=== PATIENT | female | born 1970 | race Caucasian/White ===

== ENCOUNTER 2024-07-13 08:00 | Outpatient (OUT) | payer OTHER, SELFPAY | END 2024-07-13 08:01 | disposition home or self-care (01) | LOC: SLEEP 07-14 08:41 | PROVIDERS: PCP Family Medicine; Visit Provider Family Medicine | DX: G47.33 Obstructive sleep apnea (adult) (pediatric) (principal) | CPT/HCPCS: 95806 ==

== ENCOUNTER 2024-08-03 19:59 | Outpatient (OUT) | payer OTHER, SELFPAY ==
--- OUTSIDE RECORDS SUMMARY | 2024-08-03 20:01 | XMS_ITS | CCD ---
Author Organization [facility] Care Team Providers Care Sports Leadership Instructor Name Role Phone Agustin Nash MD Primary Care Provider [phone] MD Agustin Nash Primary Care Provider [phone] [facility], JADIEL Callejas Attending Prov ider Agustin Nash MD Primary Care Provider [phone] Agustin Nash MD Primary Care Provider [phone] SAAD ., DR VELEZ Admitting Unavailable HOY ., DR VELEZ Primary Care Unavailable HOY ., DR VELEZ Attending Unavailable HOY ., DR VELEZ Admitting Unavailable HOY ., DR VELEZ Primary Care Unavailable HOY ., DR VELEZ Consulting Unavailable HOY ., DR VELEZ Attending Unavailable ZIEBER, DR TERRY Puente Consulting Unavailable MD Agustin Nash Primary Care Provider [phone] [facility], JADIEL Callejas Attending Prov ider MD Agustin Nash Primary Care Provider [phone] [facility], JADIEL Callejas Attending Prov ider LATOYA REESE Attending Unavailable LATOYA REESE Referring Unavailable LATOYA REESE Referring Unavailable MD Agustin Nash Primary Care Provider [phone] JADIEL Fagan Attending Provider Caitlyn Fagan Attending Unavailable Caitlyn Fagan Admitting Unavailable Agustin Nash Primary Care Unavailable Caitlyn Fagan Admitting Unavailable Caitlyn Fagan Attending Unavailable Agustin Nash Primary Care Unavailable Medications Current Medications Medication Drug Class(es) Dates Sig (Normalized) Sig (Original) [place] (No Known Home Meds) (5 sources) Start: 10-11-2020 [place] (No Known Home Meds) Active October 11, 2020 12:00am Completed/Discontinued Medications Medication Drug Class(es) Dates Sig (Normalized) Sig (Original) acetaminophen 325 mg / HYDROcodone bitartrate 5 mg oral tablet (5 sources) Opioid Agonist Start: 01-06-2018 End: 10-11-2020 take 1 tablet by mouth every six hours Hydrocodone-Acetami nophen ([place]) 5-325 mg tablet Discontinued 1 TAB PO Q6H January 06, 2018 October 11, 2020 1:25pm Chondroitin Sulfates / Glucosamine (5 sources) Start: 12-30-2017 End: 10-11-2020 take 1 dose by mouth once daily Glucosamine-Chondro itin Discontinued 1 DOSE PO Daily December 30, 2017 12:00am October 11, 2020 1:25pm 24 hr desvenlafaxine succinate 25 mg extended release oral tablet (10 sources) Serotonin and Norepinephrine Reuptake Inhibitor Start: 01-06-2018 End: 10-11-2020 take 1 tablet by mouth once daily, then take 1 tablet by mouth every twenty-four hours Desvenlafaxine Succinate (Pristiq) 25 mg Tablet Extended Release 24 Hr Discontinued 25 MG PO Daily January 06, 2018 12:00am October 11, 2020 1:25pm Start: 12-30-2017 End: 10-11-2020 take 25 mg by mouth once daily Desvenlafaxine Discontinued 25 MG PO Daily December 30, 2017 12:00am October 11, 2020 1:25pm ibuprofen 600 mg oral tablet (5 sources) Nonsteroidal Anti-inflammatory Drug Start: 01-06-2018 End: 10-11-2020 Ibuprofen Discontinued 600 MG PO Every 6 hours January 06, 2018 12:00am October 11, 2020 1:25pm do not exceed 4 doses in a 24 hour period Supplement For Tissue Repair (5 sources) Start: 12-30-2017 End: 10-11-2020 take 2 capsules by mouth once daily Supplement For Tissue Repair Discontinued 2 CAP PO Daily December 30, 2017 12:00am October 11, 2020 1:25pm Problems Active Problems Problem Classification Problem Date Documented Date Episodic/Chronic Other bone disease and musculoskeletal deformities (7 sources) Posterior calcaneal exostosis; Translations: [Juvenile osteochondrosis of tarsus, right ankle] Onset: 01-29-2022 Chronic Other connective tissue disease (2 sources) Right achilles tendonitis; Translations: [Achilles tendinitis, right leg] Episodic Other connective tissue disease (6 sources) Pain in hallux; Translations: [Pain in left toe(s)] Episodic Other screening for suspected conditions (not mental disorders or infectious disease) (5 sources) Patient encounter status; Translations: [Encounter for screening for malignant neoplasm of colon] 10-12-2020 Episodic Other skin disorders (3 sources) Ingrowing nail; Translations: [Ingrowing nail] Episodic Skin and subcutaneous tissue infections (2 sources) Paronychia of toe of left foot; Translations: [Cellulitis of left toe] Episodic Spondylosis; intervertebral disc disorders; other back problems (6 sources) Other cervical disc degeneration, unspecified cervical region; Translations: [Other cervical disc degeneration at C5-C6 level] Onset: 06-13-2022 Chronic Past or Other Problems Problem Classification Problem Date Documented Da te Episodic/Chronic Other connective tissue disease (7 sources) Calcaneal spur of right foot; Translations: [Calcaneal spur, right foot] Onset: 01-29-2022 Episodic Results Test Name Value Interpretation Reference Range Facility Alanine aminotransferase [En zymatic activity/volume] in Serum or PlasmaOrdered By: Caitlyn Fagan on 02-17-2024 ALT [Catalytic activity/Vol] 22 U/L Normal 7-52 [facility] Comment on above: Performed By: #### L IPID, CMP wRFX A1C, CBCNO, TSH3 #### [facility] [address] [place] [address] #### NICOTINE QUAL #### [facility] , Albumin [Mass/volume] in Ser um or Plasma by Bromocresol green (BCG) dye binding methoOrdered By: Caitlyn Fagan on 02-17-2024 Albumin BCG dye [Mass/Vol] 4.7 g/dL 3.5-5.7 [facility] Alkaline phosphatase [Enzyma tic activity/volume] in Serum or PlasmaOrdered By: Caitlyn Fagan on 02-17-2024 ALP [Catalytic activity/Vol] 60 U/L Normal 34-104 [facility] Comment on above: Performed By: #### L IPID, CMP wRFX A1C, CBCNO, TSH3 #### [facility] [address] [place] [address] [place] #### NICOTINE QUAL #### [facility] , Aspartate aminotransferase [ Enzymatic activity/volume] in Serum or PlasmaOrdered By: Caitlyn Fagan on 02-17-2024 AST [Catalytic activity/Vol] 16 U/L Normal 13-39 [facility] Comment on above: Performed By: #### L IPID, CMP wRFX A1C, CBCNO, TSH3 #### [facility] [address] [place] [address] #### NICOTINE QUAL #### [facility] , Bilirubin.total [Mass/volume ] in Serum or PlasmaOrdered By: Caitlyn Fagan on 02-17-2024 Bilirubin [Mass/Vol] 0.3 mg/dL Normal 0.3-1.0 [facility] Comment on above: Performed By: #### L IPID, CMP wRFX A1C, CBCNO, TSH3 #### [facility] [address] [place] [address] [place] #### NICOTINE QUAL #### [facility] , CMP with reflex to A1Con Albumin [Mass/Vol] 4.7 g/dL Normal 3.5-5.7 [facility] Comment on above: Performed By: #### L IPID, CMP wRFX A1C, CBCNO, TSH3 #### [facility] [address] [place] [address] [place] #### NICOTINE QUAL #### [facility] , GFR/1.73 sq M.predicted MDRD (S/P/Bld) [Vol rate/Area] mL/min/{1.73_m2} Normal [facility] Comment on above: Performed By: #### L IPID, CMP wRFX A1C, CBCNO, TSH3 #### [facility] [address] [place] [address] [place] #### NICOTINE QUAL #### [facility] , Calcium [Mass/volume] in Ser um or PlasmaOrdered By: Caitlyn Fagan on 02-17-2024 Calcium [Mass/Vol] 9.5 mg/dL Normal 8.6-10.3 [facility] Comment on above: Performed By: #### L IPID, CMP wRFX A1C, CBCNO, TSH3 #### [facility] [address] [place] [address] [place] #### NICOTINE QUAL #### [facility] , Carbon dioxide, total [Moles /volume] in Serum or PlasmaOrdered By: Caitlyn Fagan on 02-17-2024 CO2 [Moles/Vol] 30.7 mmol/L Normal 21.0-31.0 [facility] Comment on above: Performed By: #### L IPID, CMP wRFX A1C, CBCNO, TSH3 #### [facility] [address] [place] [address] [place] #### NICOTINE QUAL #### [facility] , Chloride [Moles/volume] in S florentino or PlasmaOrdered By: Caitlyn Fagan on 02-17-2024 Chloride [Moles/Vol] 103 mmol/L Normal 98-107 [facility] Comment on above: Performed By: #### L IPID, CMP wRFX A1C, CBCNO, TSH3 #### [facility] [address] [place] [address] [place] #### NICOTINE QUAL #### [facility] , Cholesterol [Mass/volume] in Serum or PlasmaOrdered By: Caitlyn Fagan on 02-17-2024 Cholesterol [Mass/Vol] 175 mg/dL Normal 140-200 [facility] Comment on above: Chol less than 200 m g/dl low riskChol 201-239 mg/dl borderline riskChol 240 mg/dl and greater high risk Result Comment: Chol less than 200 mg/dl low risk Chol 201-239 mg/dl borderline risk Chol 240 mg/dl and greater high risk Performed By: #### L IPID, CMP wRFX A1C, CBCNO, TSH3 #### [facility] [address] [place] [address] [place] #### NICOTINE QUAL #### [facility] , Cholesterol in LDL Calc [Mas s/Vol]Ordered By: Caitlyn Fagan on 02-17-2024 Cholesterol in LDL [Mass/Vol] 103 mg/dL High 0-100 [facility] Comment on above: LDL ATP III CLASSIFI CATIONLDL less than 100 mg/dL OptimalLDL 100-129 mg/dL Near or above optimalLDL 130-159 mg/dL Borderline highLDL 160-189 mg/dL HighLDL greater than 189 mg/dL Very high Cholesterol in VLDL Calc [Ma ss/Vol]Ordered By: Caitlyn Fagan on 02-17-2024 Cholesterol in VLDL [Mass/Vol] 22 mg/dL [facility] Creatinine [Mass/volume] in Serum or PlasmaOrdered By: Caitlyn Fagan on 02-17-2024 Creatinine [Mass/Vol] 0.79 mg/dL Normal 0.60-1.20 [facility] Comment on above: Performed By: #### L IPID, CMP wRFX A1C, CBCNO, TSH3 #### [facility] [address] [place] [address] [place] #### NICOTINE QUAL #### [facility] , Erythrocyte distribution wid th [Ratio] by Automated countOrdered By: Caitlyn Fagan on 02-17-2024 Erythrocyte distribution width (RBC) [Ratio] 13.3 % Normal 11.9-15.3 [facility] Comment on above: Performed By: #### L IPID, CMP wRFX A1C, CBCNO, TSH3 #### [facility] [address] [place] [address] [place] #### NICOTINE QUAL #### [facility] , Erythrocytes [#/volume] in B lood by Automated countOrdered By: Caitlyn Fagan on 02-17-2024 RBC (Bld) [#/Vol] 4.57 10*6/uL Normal 3.60-5.00 [facility] Comment on above: Performed By: #### L IPID, CMP wRFX A1C, CBCNO, TSH3 #### [address] #### NICOTINE QUAL #### [facility] , Glucose [Mass/volume] in Ser um or PlasmaOrdered By: Caitlyn Fagan on 02-17-2024 Glucose [Mass/Vol] 99 mg/dL Normal 70-100 [facility] Comment on above: Performed By: #### L IPID, CMP wRFX A1C, CBCNO, TSH3 #### [facility] [address] [place] [address] [place] #### NICOTINE QUAL #### [facility] , Hematocrit [Volume Fraction] of Blood by Automated countOrdered By: Caitlyn Fagan on 02-17-2024 Hematocrit (Bld) [Volume fraction] 39.5 % Normal 34.0-46.4 [facility] Comment on above: Performed By: #### L IPID, CMP wRFX A1C, CBCNO, TSH3 #### [facility] [address] [place] [address] [place] #### NICOTINE QUAL #### [facility] , Hemoglobin [Mass/volume] in BloodOrdered By: Caitlyn Fagan on 02-17-2024 Hemoglobin (Bld) [Mass/Vol] 13.5 g/dL Normal 11.8-15.4 [facility] Comment on above: Performed By: #### L IPID, CMP wRFX A1C, CBCNO, TSH3 #### [facility] [address] [place] [address] [place] #### NICOTINE QUAL #### [facility] , Hemogram CBC Without Diffon 02-17-2024 Mean Corpuscular HGB Conc 34.1 g/dL Normal 32.0-35.0 [facility] Comment on above: Performed By: #### L IPID, CMP wRFX A1C, CBCNO, TSH3 #### [place] [address] [place] #### NICOTINE QUAL #### [facility] , WBC (Bld) [#/Vol] 7.5 10*3/uL Normal 3.8-11.6 [facility] Comment on above: Performed By: #### L IPID, CMP wRFX A1C, CBCNO, TSH3 #### [facility] [address] [place] [address] [place] #### NICOTINE QUAL #### [facility] , Leukocytes [#/volume] correc steven for nucleated erythrocytes in Blood by Automated counOrdered By: Caitlyn Fagan on 02-17-2024 WBC corrected for nucl RBC Auto (Bld) [#/Vol] 7.5 10*3/uL 3.8-11.6 [facility] Lipid Panelon 02-17-2024 LDL Cholesterol,Calculated 103 mg/dL High 0-100 [facility] Comment on above: Result Comment: LDL ATP III CLASSIFICATION LDL less than 100 mg/dL Optimal LDL 100-129 mg/dL Near or above optimal LDL 130-159 mg/dL Borderline high LDL 160-189 mg/dL High LDL greater than 189 mg/dL Very high Performed By: #### L IPID, CMP wRFX A1C, CBCNO, TSH3 #### [place] [address] [place] #### NICOTINE QUAL #### [facility] , Triglyceride w/Reflex 112 mg/dL Normal 0-149 [facility] Comment on above: Result Comment: TRIG ATP III CLASSIFICATION TRIG less than 150 mg/dL Normal TRIG 150-199 mg/dL Borderline high TRIG 200-500 mg/dL High TRIG greater than 500 mg/dL Very high Standard traceable to the Center for Disease Conrtrol and Prevention (CDC) test method. Performed By: #### L IPID, CMP wRFX A1C, CBCNO, TSH3 #### [place] [address] [place] #### NICOTINE QUAL #### [facility] , VLDL CHOLESTEROL 22 mg/dL Normal [facility] Comment on above: Performed By: #### L IPID, CMP wRFX A1C, CBCNO, TSH3 #### [facility] [address] [place] [address] [place] #### NICOTINE QUAL #### [facility] , MCH [Entitic mass] by Automa steven countOrdered By: Caitlyn Fagan on 02-17-2024 MCH (RBC) [Entitic mass] 29.5 pg Normal 24.7-34.3 [facility] Comment on above: Performed By: #### L IPID, CMP wRFX A1C, CBCNO, TSH3 #### [facility] [address] [place] [address] #### NICOTINE QUAL #### [facility] , MCHC Auto (RBC) [Mass/Vol]Or dered By: Caitlyn Fagan on 02-17-2024 MCHC (RBC) [Mass/Vol] 34.1 g/dL 32.0-35.0 [facility] MCV [Entitic volume] by Auto mated countOrdered By: Caitlyn Fagan on 02-17-2024 MCV (RBC) [Entitic vol] 86.5 fL Normal 80-100 [facility] Comment on above: Performed By: #### L IPID, CMP wRFX A1C, CBCNO, TSH3 #### [place] [address] [place] #### NICOTINE QUAL #### [facility] , Nicotine Metabolite, QualOrd ered By: Caitlyn Fagan on 02-17-2024 Nicotine Metabolite Negative Normal Cutoff=25 [facility] Comment on above: Performed at: [facility] [address] [id number] Director: Mike Alejandre MD, Phone: [phone] Result Comment: Perf ormed at: BN - [facility] [address] [id number] Online Community Manager: Mike Alejandre MD, Phone: [phone] PERFORMED BY: [place] [address] PATHOLOGIST TOW MOTOR OPERATOR TORITO CASTRO M.D. Performed By: #### L IPID, CMP wRFX A1C, CBCNO, TSH3 #### [address] #### NICOTINE QUAL #### [facility] , No Panel InformationOrdered By: Caitlyn Fagan on 02-17-2024 Estimated GFR (CKD-EPI) > 60.0 mL/Min [facility] Creatinine Clearance (Chem N/A [facility] Platelet mean volume [Entiti c volume] in Blood by Automated countOrdered By: Caitlyn Fagan on 02-17-2024 Platelet mean volume (Bld) [Entitic vol] 8.3 fL Normal 6.3-10.7 [facility] Comment on above: Result Comment: PERF ORMED BY: [place] [address] PATHOLOGIST TOW MOTOR OPERATOR TORITO CASTRO M.D. Performed By: #### L IPID, CMP wRFX A1C, CBCNO, TSH3 #### [address] #### NICOTINE QUAL #### [facility] , Platelets [#/volume] in Bloo d by Automated countOrdered By: Caitlyn Fagan on 02-17-2024 Platelets (Bld) [#/Vol] 248 10*3/uL Normal 150-450 [facility] Comment on above: Performed By: #### L IPID, CMP wRFX A1C, CBCNO, TSH3 #### [address] #### NICOTINE QUAL #### [facility] , Potassium [Moles/volume] in Serum or PlasmaOrdered By: Caitlyn Fagan on 02-17-2024 Potassium [Moles/Vol] 4.8 mmol/L Normal 3.5-5.1 [facility] Comment on above: Performed By: #### L IPID, CMP wRFX A1C, CBCNO, TSH3 #### [facility] [address] [place] [address] [place] #### NICOTINE QUAL #### [facility] , Protein [Mass/volume] in Ser um or PlasmaOrdered By: Caitlyn Fagan on 02-17-2024 Protein [Mass/Vol] 6.9 g/dL Normal 6.4-8.9 [facility] Comment on above: Performed By: #### L IPID, CMP wRFX A1C, CBCNO, TSH3 #### [facility] [address] [place] [address] #### NICOTINE QUAL #### [facility] , Serum globulin measurement b y calculation (mass/volume)Ordered By: Caitlyn Fagan on 02-17-2024 Globulin (S) [Mass/Vol] 2.2 g/dL Normal [facility] Comment on above: Performed By: #### L IPID, CMP wRFX A1C, CBCNO, TSH3 #### [facility] [address] [place] [address] [place] #### NICOTINE QUAL #### [facility] , Serum or plasma albumin/glob ulin mass ratioOrdered By: Catilyn Fagan on 02-17-2024 Albumin/Globulin [Mass ratio] 2.1 {ratio} Normal [facility] Comment on above: Performed By: #### L IPID, CMP wRFX A1C, CBCNO, TSH3 #### [facility] [address] [place] [address] [place] #### NICOTINE QUAL #### [facility] , Serum or plasma anion gap de terminationOrdered By: Caitlyn Fagan on 02-17-2024 Anion gap [Moles/Vol] 9.1 mmol/L Normal 6.0-15.0 [facility] Comment on above: Performed By: #### L IPID, CMP wRFX A1C, CBCNO, TSH3 #### [facility] [address] [place] [address] [place] #### NICOTINE QUAL #### [facility] , Serum or plasma high density lipoprotein (HDL) cholesterol measurementOrdered By: Caitlyn Fagan on 02-17-2024 Cholesterol in HDL [Mass/Vol] 50 mg/dL Normal 23-92 [facility] Comment on above: HDL CHOL ATP-III CLA SSIFICATION Cardiovascular RiskHDL > or equal to 60 mg/dL LOWHDL < 40 mg/dL HIGH Result Comment: HDL CHOL ATP-III CLASSIFICATION Cardiovascular Risk HDL > or equal to 60 mg/dL LOW HDL < 40 mg/dL HIGH Performed By: #### L IPID, CMP wRFX A1C, CBCNO, TSH3 #### [facility] [address] [place] [address] #### NICOTINE QUAL #### [facility] , Serum or plasma total choles terol/high density lipoprotein (HDL) cholesterol mass ratOrdered By: Caitlyn Fagan on 02-17-2024 Cholesterol.total/Choles terol in HDL [Mass ratio] 3.5 {ratio} Normal <5.0 [facility] Comment on above: Performed By: #### L IPID, CMP wRFX A1C, CBCNO, TSH3 #### [facility] [address] [place] [address] #### NICOTINE QUAL #### [facility] , Sodium [Moles/volume] in Ser um or PlasmaOrdered By: Caitlyn Fagan on 02-17-2024 Sodium [Moles/Vol] 138 mmol/L Normal 136-145 [facility] Comment on above: Performed By: #### L IPID, CMP wRFX A1C, CBCNO, TSH3 #### [facility] [address] [place] [address] [place] #### NICOTINE QUAL #### [facility] , Thyrotropin [Units/volume] i n Serum or PlasmaOrdered By: Caitlyn Fagan on 02-17-2024 TSH Qn 3.15 m[IU]/L Normal 0.45-5.33 [facility] Comment on above: Result Comment: PERF ORMED BY: [place] [address] PATHOLOGIST TOW MOTOR OPERATOR TORITO CASTRO M.D. Performed By: #### L IPID, CMP wRFX A1C, CBCNO, TSH3 #### [facility] [address] #### NICOTINE QUAL #### [facility] , Triglyceride [Mass/volume] i n Serum or PlasmaOrdered By: Caitlyn Fagan on 02-17-2024 Triglyceride [Mass/Vol] 112 mg/dL 0-149 [facility] Comment on above: TRIG ATP III CLASSIF ICATIONTRIG less than 150 mg/dL NormalTRIG 150-199 mg/dL Borderline highTRIG 200-500 mg/dL High TRIG greater than 500 mg/dL Very highStandard traceable to the Center for Disease Conrtrol and Prevention (CDC) test method. Urea nitrogen [Mass/volume] in Serum or PlasmaOrdered By: Caitlyn Fagan on 02-17-2024 Urea nitrogen [Mass/Vol] 17 mg/dL Normal 7-25 [facility] Comment on above: Performed By: #### L IPID, CMP wRFX A1C, CBCNO, TSH3 #### [facility] [address] #### NICOTINE QUAL #### [facility] , BI MAMMOGRAM SCREENING TOMOS YNTHESIS BILATERALon 11-27-2023 BI MAMMOGRAM SCREENING TOMOSYNTHESIS BILATERAL This is a summary report. The complete report is available in the patient's medical record. If you cannot access the medical record, please contact the sending organization for a detailed fax or copy. EXAMINATION: BI MAMMOGRAM SCREENING TOMOSYNTHESIS BILATERAL CLINICAL HISTORY:screening COMPARISON: October 14, 2022 . RESULT: Density: Scattered fibroglandular density [2] There is no suspicious mass, asymmetry, architectural distortion, or calcification. Typically benign calcifications. Overall appearance stable. IMPRESSION: BIRADS 1 - Negative Follow-up: Routine Screening Mamm Board Certified Radiologists. Accredited by the ACR and FDA. MAMMOGRAPHY IS VERY IMPORTANT TO YOUR HEALTH. THE [employer] GUIDELINES RECOMMEND THAT WOMEN 40 YEARS OF AGE AND OLDER SHOULD HAVE A MAMMOGRAM EVERY YEAR. A REMINDER LETTER WILL BE SENT AT THE APPROPRIATE TIME. THIS FACILITY UTILIZES A REMINDER SYSTEM TO ENSURE ALL PATIENTS RECEIVE REMINDER NOTIFICATIONS AT THE APPROPRIATE TIME BASED ON THE RECOMMENDATIONS OF THIS EXAM. THIS INCLUDES REMINDERS FOR ROUTINE SCREENING MAMMOGRAMS, DIAGNOSTIC MAMMOGRAMS IN WHICH THE PATIENT IS ASKED TO RETURN FOR ADDITIONAL VIEWS, OR OTHER BREAST IMAGING INTERVENTIONS WHEN APPROPRIATE. THE PATIENT WILL BE PLACED IN THE APPROPRIATE REMINDER SYSTEM INCLUDING A REMINDER AT THE APPROPRIATE TIME FOR ANY PENDING ADDITIONAL VIEWS. TRANSCRIBED BY: ELECTRONICALLY SIGNED BY: John Arellano MD Normal Not Available Comment on above: Order Comment: Us an d spot compression prn Alanine aminotransferase [En zymatic activity/volume] in Serum or PlasmaOrdered By: Caitlyn Fagan on 01-21-2023 ALT [Catalytic activity/Vol] 22 U/L 7-52 [facility] Albumin [Mass/volume] in Ser um or Plasma by Bromocresol green (BCG) dye binding methoOrdered By: Caitlyn Fagan on 01-21-2023 Albumin BCG dye [Mass/Vol] 4.7 g/dL 3.5-5.7 [facility] Alkaline phosphatase [Enzyma tic activity/volume] in Serum or PlasmaOrdered By: Caitlyn Fagan on 01-21-2023 ALP [Catalytic activity/Vol] 66 U/L 34-104 [facility] Aspartate aminotransferase [ Enzymatic activity/volume] in Serum or PlasmaOrdered By: Caitlyn Fagan on 01-21-2023 AST [Catalytic activity/Vol] 17 U/L 13-39 [facility] Bilirubin.total [Mass/volume ] in Serum or PlasmaOrdered By: Caitlyn Fagan on 01-21-2023 Bilirubin [Mass/Vol] 0.5 mg/dL 0.3-1.0 [facility] Calcium [Mass/volume] in Ser um or PlasmaOrdered By: Caitlyn Fagan on 01-21-2023 Calcium [Mass/Vol] 9.5 mg/dL 8.6-10.3 [facility] Carbon dioxide, total [Moles /volume] in Serum or PlasmaOrdered By: Caitlyn Fagan on 01-21-2023 CO2 [Moles/Vol] 32.8 mmol/L 21.0-31.0 [facility] Chloride [Moles/volume] in S florentino or PlasmaOrdered By: Caitlyn Fagan on 01-21-2023 Chloride [Moles/Vol] 104 mmol/L 98-107 [facility] Cholesterol [Mass/volume] in Serum or PlasmaOrdered By: Caitlyn Fagan on 01-21-2023 Cholesterol [Mass/Vol] 191 mg/dL 140-200 [facility] Comment on above: Chol less than 200 m g/dl low riskChol 201-239 mg/dl borderline riskChol 240 mg/dl and greater high risk Cholesterol in LDL Calc [Mas s/Vol]Ordered By: Caitlyn Fagan on 01-21-2023 Cholesterol in LDL [Mass/Vol] 112 mg/dL 0-100 [facility] Comment on above: LDL ATP III CLASSIFI CATIONLDL less than 100 mg/dL OptimalLDL 100-129 mg/dL Near or above optimalLDL 130-159 mg/dL Borderline highLDL 160-189 mg/dL HighLDL greater than 189 mg/dL Very high Cholesterol in VLDL Calc [Ma ss/Vol]Ordered By: Caitlyn Fagan on 01-21-2023 Cholesterol in VLDL [Mass/Vol] 31 mg/dL [facility] Creatinine [Mass/volume] in Serum or PlasmaOrdered By: Caitlyn Fagan on 01-21-2023 Creatinine [Mass/Vol] 0.78 mg/dL 0.60-1.20 [facility] Erythrocyte distribution wid th Auto (RBC) [Ratio]Ordered By: Caitlyn Fagan on 01-21-2023 Erythrocyte distribution width (RBC) [Ratio] 12.9 % 11.9-15.3 [facility] [facility] Globulin Calc (S) [Mass/Vol] Ordered By: Caitlyn Fagan on 01-21-2023 Globulin (S) [Mass/Vol] 2.2 g/dL [facility] Glucose [Mass/volume] in Ser um or PlasmaOrdered By: Caitlyn Fagan on 01-21-2023 Glucose [Mass/Vol] 115 mg/dL 70-100 [facility] Comment on above: ADA recommended refe rence range Hematocrit Auto (Bld) [Volum e fraction]Ordered By: Caitlyn Fagan on 01-21-2023 Hematocrit (Bld) [Volume fraction] 40.3 % 34.0-46.4 [facility] Hemoglobin [Mass/volume] in BloodOrdered By: Caitlyn Fagan on 01-21-2023 Hemoglobin (Bld) [Mass/Vol] 13.5 g/dL 11.8-15.4 [facility] Leukocytes [#/volume] correc steven for nucleated erythrocytes in Blood by Automated counOrdered By: Caitlyn Fagan on 01-21-2023 WBC corrected for nucl RBC Auto (Bld) [#/Vol] 8.5 10*3/uL 3.8-11.6 [facility] MCH Auto (RBC) [Entitic mass ]Ordered By: Caitlyn Fagan on 01-21-2023 MCH (RBC) [Entitic mass] 29.1 pg 24.7-34.3 [facility] MCHC Auto (RBC) [Mass/Vol]Or dered By: Caitlyn Fagan on 01-21-2023 MCHC (RBC) [Mass/Vol] 33.5 g/dL 32.0-35.0 [facility] MCV Auto (RBC) [Entitic vol] Ordered By: Caitlyn Fagan on 01-21-2023 MCV (RBC) [Entitic vol] 87.0 fL 80-100 [facility] No Panel InformationOrdered By: Caitlyn Fagan on 01-21-2023 Estimated GFR (CKD-EPI) > 60.0 mL/Min [facility] Pharmacy Creatinine Clearance (Chem N/A [facility] Platelet mean volume Auto (B ld) [Entitic vol]Ordered By: Caitlyn Fagan on 01-21-2023 Platelet mean volume (Bld) [Entitic vol] 8.7 fL 6.3-10.7 [facility] Platelets Auto (Bld) [#/Vol] Ordered By: Caitlyn Fagan on 01-21-2023 Platelets (Bld) [#/Vol] 249 10*3/uL 150-450 [facility] Potassium [Moles/volume] in Serum or PlasmaOrdered By: Caitlyn Fagan on 01-21-2023 Potassium [Moles/Vol] 4.8 mmol/L 3.5-5.1 [facility] Protein [Mass/volume] in Ser um or PlasmaOrdered By: Caitlyn Fagan on 01-21-2023 Protein [Mass/Vol] 6.9 g/dL 6.4-8.9 [facility] RBC Auto (Bld) [#/Vol]Ordere d By: Caitlyn Fagan on 01-21-2023 RBC (Bld) [#/Vol] 4.63 10*6/uL 3.60-5.00 [facility] Serum or plasma albumin/glob ulin mass ratioOrdered By: Caitlyn Fagan on 01-21-2023 Albumin/Globulin [Mass ratio] 2.1 {ratio} [facility] Serum or plasma anion gap de terminationOrdered By: Caitlyn Fagan on 01-21-2023 Anion gap [Moles/Vol] 10.0 mmol/L 6.0-15.0 [facility] Serum or plasma high density lipoprotein (HDL) cholesterol measurementOrdered By: Caitlyn Fagan on 01-21-2023 Cholesterol in HDL [Mass/Vol] 48 mg/dL 23-92 [facility] Comment on above: HDL CHOL ATP-III CLA SSIFICATION Cardiovascular RiskHDL > or equal to 60 mg/dL LOWHDL < 40 mg/dL HIGH Serum or plasma total choles terol/high density lipoprotein (HDL) cholesterol mass ratOrdered By: Caitlyn Fagan on 01-21-2023 Cholesterol.total/Choles terol in HDL [Mass ratio] 4.0 {ratio} <5.0 [facility] Sodium [Moles/volume] in Ser um or PlasmaOrdered By: Caitlyn Fagan on 01-21-2023 Sodium [Moles/Vol] 142 mmol/L 136-145 [facility] Thyrotropin [Units/volume] i n Serum or PlasmaOrdered By: Caitlyn Fagan on 01-21-2023 TSH Qn 3.70 m[IU]/L 0.45-5.33 [facility] Triglyceride [Mass/volume] i n Serum or PlasmaOrdered By: Caitlyn Fagan on 01-21-2023 Triglyceride [Mass/Vol] 155 mg/dL 0-149 [facility] Comment on above: TRIG ATP III CLASSIF ICATIONTRIG less than 150 mg/dL NormalTRIG 150-199 mg/dL Borderline highTRIG 200-500 mg/dL High TRIG greater than 500 mg/dL Very highStandard traceable to the Center for Disease Conrtrol and Prevention (CDC) test method. Urea nitrogen [Mass/volume] in Serum or PlasmaOrdered By: Caitlyn Fagan on 01-21-2023 Urea nitrogen [Mass/Vol] 12 mg/dL 7- [facility] SCREENING MAMMOGRAM W/EMILI, BILATERAL*on 10-14-2022 SCREENING MAMMOGRAM W/EMILI, BILATERAL* CLINICAL HISTORY: Screening Mammogram COMPARISON: Priors dating back to 2017. TECHNIQUE: 2D and 3D mammogram imaging of both breasts was performed. RESULT: DENSITY: Heterogeneously dense, which may obscure small masses. There is no suspicious mass, asymmetry, architectural distortion, or calcification. No significant change since the prior mammograms. IMPRESSION: BIRADS 1 : NEGATIVE, NORMAL INTERVAL FOLLOW UP FOLLOW UP: 12 months DENSITY: Heterogeneously dense MAMMOGRAPHY IS VERY IMPORTANT TO YOUR HEALTH. THE CURRENT [employer] GUIDELINES RECOMMENDS ANNUAL MAMMOGRAPHY BEGINNING AT AGE 38 THIS FACILITY USES A REMINDER SYSTEM TO ENSURE ALL PATIENTS RECEIVE REMINDER NOTIFICATIONS AT THE APPROPRIATE TIME BASED ON THE RECOMMENDATIONS OF THIS EXAM. Board Certified Radiologist. Accredited by the ACR and FDA. Report reported and signed by Clay Gregory on 10/14/2022 1113 Normal [facility] Specialist XR CSPINE MIN 4 VIEWSon 06-02 XR CSPINE MIN 4 VIEWS EXAMINATION: XR CSPINE MIN 4 VIEWS HISTORY: Degeneration of cervical intervertebral disc ; chronic neck pain, right arm pain and numbness COMPARISON: No relevant comparison available. FINDINGS: BONES: Reversal of normal lordotic curvature of cervical spine; positioning versus muscle spasm.. No fracture, spondylolisthesis, bone lesion. No facet joint disruption or significant arthropathy. DISC SPACES: Mild narrowing C4-C5, C5-C6. PARASPINOUS: Negative. No paraspinous abnormality is seen. OTHER: Negative. IMPRESSION: 1. Mild degenerative disc disease C4-C5, C5-C6. Consider MRI for further evaluation. Electronically authenticated by: TERRY HERNANDEZ Date: 2022-06-13 08:33 Normal [facility] Albumin [Mass/volume] in Ser um or PlasmaOrdered By: Caitlyn Fagan on 02-08-2022 Albumin [Mass/Vol] 4.2 g/dL 3.2-5.5 [facility] Blood hemoglobin measurement (mass/volume)Ordered By: Caitlyn Fagan on 02-08-2022 Hemoglobin (Bld) [Mass/Vol] 13.8 g/dL 11.8-15.4 [facility] Cholesterol [Mass/volume] in Serum or PlasmaOrdered By: Caitlyn Fagan on 02-08-2022 Cholesterol [Mass/Vol] 182 mg/dL 140-200 [facility] Comment on above: Chol less than 200 m g/dl low risk Chol 201-239 mg/dl borderline risk Chol 240 mg/dl and greater high risk Cholesterol in LDL Calc [Mas s/Vol]Ordered By: Caitlyn Fagan on 02-08-2022 Cholesterol in LDL [Mass/Vol] 101 mg/dL 0-100 [facility] Comment on above: LDL ATP III CLASSIFI CATION LDL less than 100 mg/dL Optimal LDL 100-129 mg/dL Near or above optimal LDL 130-159 mg/dL Borderline high LDL 160-189 mg/dL High LDL greater than 189 mg/dL Very high Cholesterol in VLDL Calc [Ma ss/Vol]Ordered By: Caitlyn Fagan on 02-08-2022 Cholesterol in VLDL [Mass/Vol] 34 mg/dL [facility] Creatinine and Glomerular fi ltration rate.predicted panel (S/P/Bld)Ordered By: Caitlyn Fagan on 02-08-2022 Creatinine [Mass/Vol] 0.87 mg/dL 0.44-1.03 [facility] Erythrocyte distribution wid th Auto (RBC) [Ratio]Ordered By: Caitlyn Fagan on 02-08-2022 Erythrocyte distribution width (RBC) [Ratio] 12.8 % 11.9-15.3 [facility] Estimated glomerular filtrat ion rate (GFR) non- AmericanOrdered By: Caitlyn Fagan on 02-08-2022 GFR/1.73 sq M.predicted among non-blacks MDRD (S/P/Bld) [Vol rate/Area] > 60 mL/Min [facility] Globulin Calc (S) [Mass/Vol] Ordered By: Caitlyn Fagan on 02-08-2022 Globulin (S) [Mass/Vol] 2.2 g/dL F [facility] Hematocrit Auto (Bld) [Volum e fraction]Ordered By: Caitlyn Fagan on 02-08-2022 Hematocrit (Bld) [Volume fraction] 41.6 % 34.0-46.4 [facility] Laboratory - Chemistry and C hemistry - challengeOrdered By: Caitlyn Fagan on 02-08-2022 Glucose [Mass/Vol] 78 mg/dL 70-100 [facility] MCH Auto (RBC) [Entitic mass ]Ordered By: Caitlyn Fagan on 02-08-2022 MCH (RBC) [Entitic mass] 29.1 pg 24.7-34.3 [facility] MCHC Auto (RBC) [Mass/Vol]Or dered By: Caitlyn Fagan on 02-08-2022 MCHC (RBC) [Mass/Vol] 33.1 g/dL 32.0-35.0 [facility] MCV Auto (RBC) [Entitic vol] Ordered By: Caitlyn Fagan on 02-08-2022 MCV (RBC) [Entitic vol] 87.9 fL 80-100 F [facility] No Panel InformationOrdered By: Caitlyn Fagan on 02-08-2022 Estimated GFR () > 60 mL/Min [facility] Comment on above: GFR estimated refere nce range: According to KDOQI guidelines, <60 ml/min/1.73m2 is sufficient to diagnose a patient with chronic kidney disease. Pharmacy Creatinine Clearance (Chem N/A [facility] Platelet mean volume Auto (B ld) [Entitic vol]Ordered By: Caitlyn Fagan on 02-08-2022 Platelet mean volume (Bld) [Entitic vol] 8.8 fL 6.3-10.7 [facility] Platelets Auto (Bld) [#/Vol] Ordered By: Caitlyn Fagan on 02-08-2022 Platelets (Bld) [#/Vol] 265 10*3/uL 150-450 [facility] Protein [Mass/volume] in Ser um or PlasmaOrdered By: Caitlyn Fagan on 02-08-2022 Protein [Mass/Vol] 6.4 g/dL 6.1-7.9 [facility] RBC Auto (Bld) [#/Vol]Ordere d By: Caitlyn Fagan on 02-08-2022 RBC (Bld) [#/Vol] 4.73 10*6/uL 3.60-5.00 [facility] Serum or plasma alanine mayer otransferase measurement without P-5'-P (enzymatic activiOrdered By: Caitlyn Fagan on 02-08-2022 ALT No additional P-5'-P [Catalytic activity/Vol] 29 U/L 10-60 [facility] Serum or plasma albumin/glob ulin mass ratioOrdered By: Caitlyn Fagan on 02-08-2022 Albumin/Globulin [Mass ratio] 1.9 {ratio} [facility] Serum or plasma alkaline collin sphatase measurement (enzymatic activity/volume)Ordered By: Caitlyn Fagan on 02-08-2022 ALP [Catalytic activity/Vol] 62 U/L 32-92 [facility] Serum or plasma anion gap de terminationOrdered By: Caitlyn Fagan on 02-08-2022 Anion gap [Moles/Vol] 12.7 mmol/L 6.0-15.0 [facility] Serum or plasma aspartate am inotransferase measurement (enzymatic activity/volume)Ordered By: Caitlyn Fagan on 02-08-2022 AST [Catalytic activity/Vol] 23 U/L 10-42 [facility] Serum or plasma calcium cecliy urement (mass/volume)Ordered By: Caitlyn Fagan on 02-08-2022 Calcium [Mass/Vol] 9.4 mg/dL 8.2-10.2 [facility] Serum or plasma chloride concepcion surement (moles/volume)Ordered By: Caitlyn Fagan on 02-08-2022 Chloride [Moles/Vol] 101 mmol/L 95-114 [facility] Serum or plasma high density lipoprotein (HDL) cholesterol measurementOrdered By: Caitlyn Fagan on 02-08-2022 Cholesterol in HDL [Mass/Vol] 46 mg/dL 35-85 [facility] Comment on above: HDL CHOL ATP-III CLA SSIFICATION Cardiovascular Risk HDL > or equal to 60 mg/dL LOW HDL < 40 mg/dL HIGH Serum or plasma potassium me asurement (moles/volume)Ordered By: Caitlyn Fagan on 02-08-2022 Potassium [Moles/Vol] 4.0 mmol/L 3.5-5.1 [facility] Serum or plasma sodium measu rement (moles/volume)Ordered By: Caitlyn Fagan on 02-08-2022 Sodium [Moles/Vol] 139 mmol/L 136-146 [facility] Serum or plasma total biliru bin measurement (mass/volume)Ordered By: Caitlyn Fagan on 02-08-2022 Bilirubin [Mass/Vol] 0.4 mg/dL 0.3-1.2 [facility] Serum or plasma total carbon dioxide measurement (moles/volume)Ordered By: Caitlyn Fagan on 02-08-2022 CO2 [Moles/Vol] 29.3 mmol/L 22.0-30.0 [facility] Serum or plasma total choles terol/high density lipoprotein (HDL) cholesterol mass ratOrdered By: Caitlyn Fagan on 02-08-2022 Cholesterol.total/Choles terol in HDL [Mass ratio] 4.0 {ratio} <5.0 [facility] Serum or plasma urea nitroge n measurement (mass/volume)Ordered By: Caitlyn Fagan on 02-08-2022 Urea nitrogen [Mass/Vol] 11 mg/dL 9-23 [facility] TSH DL <= 0.005 mIU/L QnOrde red By: Caitlyn Fagan on 02-08-2022 TSH Qn 2.01 m[IU]/L 0.45-5.33 [facility] Triglyceride [Mass/volume] i n Serum or PlasmaOrdered By: Caitlyn Fagan on 02-08-2022 Triglyceride [Mass/Vol] 174 mg/dL 35-149 F [facility] Comment on above: TRIG ATP III CLASSIF ICATION TRIG less than 150 mg/dL Normal TRIG 150-199 mg/dL Borderline high TRIG 200-500 mg/dL High TRIG greater than 500 mg/dL Very high Standard traceable to the Center for Disease Conrtrol and Prevention (CDC) test method. WBC Auto (Bld) [#/Vol]Ordere d By: Caitlyn Fagan on 02-08-2022 WBC (Bld) [#/Vol] 7.3 10*3/uL 3.8-11.6 [facility] Vital Signs Date Time Vital Sign Value Performing Clinician Faci lity 09-03-2022 11:42-0400 Body height 165.1 cm Ness na Kiara DPM Work Phone: [facility] 09-03-2022 11:42-0400 Body weight 99.79 kg Ness na Kiara DPM Work Phone: [facility] 08-06-2022 10:45-0500 Body height 165.1 cm Ness na Kiara DPM Work Phone: [facility] 08-06-2022 10:45-0500 Body weight 99.79 kg Ness na Kiara DPM Work Phone: [facility] 05-14-2022 10:17-0500 Body height 165.1 cm Ness na Kiara DPM Work Phone: [facility] 05-14-2022 10:17-0500 Body weight 99.79 kg Ness na Kiara DPM Work Phone: [facility] 02-19-2022 10:20-0400 Body height 165.1 cm Ness na Kiara DPM Work Phone: [facility] 02-19-2022 10:20-0400 Body weight 99.79 kg Ness na Kiara DPM Work Phone: [facility] 01-29-2022 09:57-0400 Body height 165.1 cm Ness na Kiara DPM Work Phone: [facility] 01-29-2022 09:57-0400 Body weight 99.79 kg Ness Craig DPM Work Phone: [facility] Encounters Encounter Date Encounter Type Care Provider Facility Start: 02-24-2024 End: 02-24-2024 ambulatory Caitlyn Fagan Facility:[facility] Start: 02-24-2024 End: 02-24-2024 Patient encounter procedure MD Agustin Nash Work Phone: [facility] [address] Work Phone: Start: 02-17-2024 End: 02-17-2024 ambulatory MD Agustin Nash Work Phone: [facility] Work Phone: Start: 02-17-2024 Encounter for genera l adult medical examination without abnormal findings Caitlyn Fagan [facility] Start: 02-17-2024 End: 02-17-2024 Patient encounter procedure MD Agustin Nash Work Phone: [facility] Work Phone: Start: 11-27-2023 End: 11-27-2023 ambulatory LATOYA A VISCI Not Available Start: 11-26-2023 End: 11-26-2023 ambulatory LATOYA A VISCI Not Available Start: 01-21-2023 End: 01-21-2023 ambulatory MD Agustin Nash Work Phone: [facility] Work Phone: Start: 01-21-2023 End: 01-21-2023 Departed Referred MD Agustin Nash Work Phone: [facility] Work Phone: Start: 01-20-2023 End: 01-20-2023 ambulatory MD Agustin Nash Work Phone: [facility] Work Phone: Start: 01-20-2023 End: 01-20-2023 Departed Referred MD Agustin Nash Work Phone: [email or web address] Work Phone: Start: 09-03-2022 End: 09-03-2022 Patient encounter procedure Lulú Craig DPM Work Phone: [facility] Comment on above: Onychocryptosis (Rashida thor Dx); Great toe pain, right; Great toe pain, left Start: 08-06-2022 End: 08-06-2022 Patient encounter procedure Lulú Craig DPM Work Phone: [facility] Comment on above: Onychocryptosis (Rashida thor Dx); Great toe pain, left Start: 06-26-2022 End: 08-17-[address] AGUSTIN NASH . Facility: Start: 06-12-2022 End: 06-13-[address] AGUSTIN NASH . Facility: Start: 05-14-2022 End: 05-14-2022 Patient encounter procedure Lulú Craig DPM Work Phone: [facility] Comment on above: Onychocryptosis (Rashida thor Dx); Great toe pain, left; Tendonitis, Achilles, right; Epi's deformity of both heels; Heel spur, right Start: 02-19-2022 End: 02-19-2022 Patient encounter procedure Lulú Craig DPM Work Phone: [facility] Comment on above: Paronychia of great toe of left foot (Primary Dx); Great toe pain, left Start: 02-08-2022 End: 02-08-2022 Departed Referred MD Agustin Nash Work Phone: [email or web address] Start: 01-29-2022 End: 01-29-2022 Patient encounter procedure Lulú Craig DPM Work Phone: [facility] Comment on above: Tendonitis, Achilles , right (Primary Dx); Epi's deformity of both heels; Heel spur, right; Paronychia of great toe of left foot; Great toe pain, left Plan of Treatment Date Care Activity Detail Author Start: 01-21-2023 [facility] Start: 06-02-2022 DEPRESSION ASSESSMENT DEPRESSION ASSESSMENT [facility] Start: 01-31-2022 Influenza vaccination INFLUENZA (#1) [facility] Start: 06-02-2021 DEPRESSION ASSESSMENT DEPRESSION ASSESSMENT [facility] Start: 2018 SHINGRIX VACCINE (1 of 2) SHINGRIX VACCINE (1 of 2) [facility] Start: 2013 COLOGUARD (FIT-DNA) COLOGUARD (FIT-DNA) [facility] Start: 2013 Colonoscopy COLONOSCOPY [facility] Start: 2013 COLORECTAL CANCER SCREENING COLORECTAL CANCER SCREENING [facility] Start: [address] COLONOGRAPHY [facility] Start: 2013 DIABETES SCREEN DIABETES SCREEN [facility] Start: 2013 FECAL OCCULT BLOOD FECAL OCCULT BLOOD [facility] Start: 2013 LIPID SCREEN LIPID SCREEN [facility] Start: 2013 SIGMOIDOSCOPY SIGMOIDOSCOPY [facility] Start: 2008 Mammography MAMMOGRAM [facility] Start: 1998 HPV TESTING HPV TESTING [facility] Start: 1989 PAP TESTING PAP TESTING [facility] Start: 12-12-1987 Urine microalbumin profile DTAP,TDAP,TD (1 - Tdap) [facility] Start: 1986 HEPATITIS C SCREENING HEPATITIS C SCREENING [facility] Start: 1986 HIV SCREENING HIV SCREENING [facility] Start: 1980 Adult depression screening assessment DEPRESSION SCREENING [facility] Start: 06-13-1969 COVID-19 VACCINE (#1) COVID-19 VACCINE (#1) [facility] Start: 1968 HEPATITIS B (1 of 3 - 3-dose series) HEPATITIS B (1 of 3 - 3-dose series) [facility] Immunizations Immunization Date Immunization Notes Care Provider Elizabeth campbell 02-08-2022 influenza, injectabl e, quadrivalent, preservative free MD Agustin Nash Work Phone: [facility] Payers Date Payer Category Payer Self-pay [id number] 2018 Unknown [id number] 1968 Unknown [id number] 1968 Unknown [id number] [id number] 1968 Unknown [id number] [id number] 1968 Unknown [id number] 1959 Unknown [id number] Unknown [id number] [id number] Unknown [id number] [id number] Social History Date Type Detail Facility Start: 10-12-2020 End: 01-29-2022 Tobacco smoking status NHIS Never smoked tobacco [facility] Work Phone: Start: 01-29-2022 Tobacco use and exposure Smokeless tobacco non-user [facility] Work Phone: Start: 1970 Sex Assigned At Not on file C [facility] Start: 1970 Sex Assigned At Female F [facility] Medical Equipment Procedure Code Equipment Code Equipment Origin al Text Equipment Identifier Dates ADVANTAGE FIT TRANSVAGINAL FDA Start: 01-06-2018 ADVANTAGE FIT TRANSVAGINAL FDA Start: 01-06-2018 ADVANTAGE FIT TRANSVAGINAL FDA Start: 01-06-2018 ADVANTAGE FIT TRANSVAGINAL FDA Start: 01-06-2018 ADVANTAGE FIT TRANSVAGINAL FDA Start: 01-06-2018 Clinical Notes 01-29-2022 to 09-03-2022 Patient InstructionsLulú Craig DPM - 09/03/2022 11:34 AM EDTPatient InstructionsLulú Craig DPM - 08/06/2022 10:43 AM ESTLulú Craig, BARTOLOME - 05/14/2022 10:10 AM EST Note Date & Type Note Facility 09-03-2022 Instructions Lulú Craig, BARTOLOME - 09/03/2022 12:42 PM EDT Home Care Instruction After Nail Surgery Leave the bandages on until tomorrow morning. At that time, you can remove the bandages to shower/bathe. If the bandages are too difficult to remove, you may soak the toe or bath with the bandages on to loosen them and remove finished. Soak the surgical foot in warm water with 3 Tablespoons Epsom Salt, for 20 minutes. Dry the foot well and apply antibiotic ointment and a band aid to the toe prior to applying socks/shoe. It is recommended that you soak the surgical foot twice daily, once in the morning and again in the evening. Soaking will prevent infection from occurring. Remember to apply antibiotic ointment to the toe after drying well and cover with a bandage. If you are experiencing pain after surgery, you are permitted to take Tylenol/Aleve/Motrin, or any other pain medicine that you normally take for aches and pains. If you have any question about what you should take, do not hesitate to call/ask Dr. Craig or Dr. Reyna. Try to limit your activities for the first few days after surgery. An increase in standing/walking can cause throbbing, swelling and pain to the toe. Should this occur, elevate you leg on 3 pillows and apply and ice pack directly to the skin. If you experience fevers, chills, nausea, vomiting, loss of appetite or any other symptoms that are unusual for you, call Dr. Craig or Dr. Reyna to discuss. Please schedule your first post-operative visit with Dr. Craig. This should occur within 7-10 days of your procedure. Remember, it is always better to call Dr. Craig or Dr. aNva if you have any questions regarding your post-operative healing. We want you to have an easy, uncomplicated recovery period. No question about your care is ever silly. documented in this encounter [facility] 09-03-2022 History of Presen t illness Narrative Subjective: Danette Berry is a 51 year old female who presents for surgical correction of chronically ingrown and painful right hallux nail. She also presents for follow up on similar condition treated surgically on the left hallux 2 weeks ago. Patient has no complaints of pain to the left hallux. Verbal and written consent was obtained. PCP: Saad LEROYOS: 06/26/2022 Past Medical History: History reviewed. No pertinent past medical history. Past Surgical History: History reviewed. No pertinent surgical history. Allergies: Patient has no allergy information on record. No current outpatient medications on file. No current facility-administered medications for this visit. Physical Exam: Ht 165.1 cm (5' 5 ) Wt 99.8 kg (220 lb) BMI 36.61 kg/m BMI 36.61 kg/(m^2) Vascular: Dorsalis Pedis: +2/4 Bilateral; Posterior Tibial: +2/4 Bilateral; capillary refill < 5 seconds to all digits; Skin temperature is warm to warm, knees to toes Bilateral. Hair growth is present to the lower extremities. No varicosities noted, Edema appreciated to the posterior right heel, mild. Neurologic: Patellar and Achilles DTR's +2/4 Bilateral, Proprioception intact Bilateral, Epicritic sensation is grossly intact when testing with a [place] [employer] 5.07 monofilament and tuning fork to all 10 sites bilateral. Integumentary: Web Spaces clean, dry, intact. No open lesions or ulcers noted. No sign of infection including pus, drainage, malodor, erythema, calor, lymphangitis, or lymphadentitis noted. Skin turgor within normal limits, Tibial and Fibular margins of Hallux nail are incurvated and painful with palpation to the thickest portion of the nail centrally, right hallux. Deep grooves are still noted within the distal nail bed and folds. Left hallux nail plate margins are healed Musculoskeletal: Muscle strength against resistance to all extrinsic tendons supplying the foot and ankle +5/5 bilateral. Full active range of motion of the foot and ankle with inversion, forefoot abduction, adduction and toe flexion and extension, Pes Cavus foot type is noted with a non-reducible high arch deformity and abnormal loading of the forefoot and increase in medial longitudinal arch, Pain is reproduced with palpation to the insertional fibers of the Kalaheo's tendon of the right heel and along the posterior attachment of the Achilles. Mild discomfort is noted with palpation to the prominent superior lateral tubercle of the right calcaneus. This prominence is bilateral however only painful on the right lower extremity. Slightly high arch noted in stance bilateral. Biomechanics: An antalgic gait was seen with the patient walking the hallway Data: No results found for: HBA1C Xrays: 01/29/2022 Right Foot, Weight bearing, 3 Views AP/Oblique/LAT FINDINGS: No evidence of fracture or dislocation. No osteochondral injury noted. No degenerative changes present. Inferior and plantar calcaneal spurring noted. Epi's deformity noted . Increase in calcaneal inclination angle noted suggested of mild high arch deformity. Procedures: Performed in the office today: Right hallux tibial and fibular margin Matrixectomy. The surgical digit was scrubbed, prepped with Betadine, and the extremity draped in the usual sterile fashion. The affected margin(s) was anesthetized with 2% Xylocaine plain using a freer elevator, the surrounding soft tissue was reflected from the nail plate. The nail plate was cut and excised in toto. The nail fold was curettage and using the surgitron and phenol and alcohol technique, a Matrixectomy was performed. Dry sterile bandage was applied Assessment: Onychocryptosis (primary encounter diagnosis) Great toe pain, right Great toe pain, left Plan: Comprehensive lower extremity examination was performed. All findings and treatment recommendations were reviewed with the patient and family member/friend (if present). A detailed history and examination was obtained. I reviewed Lab results, Diagnostic & imaging results, Other practitioners charts, and took into consideration Labs or diagnostics that need to be performed. Reviewed the extensive management options for diagnosis or treatment of the above conditions. Total visit time was over 25 minutes and >50% was spent in personal face to face counseling and/or coordination of care for above conditions and treatment options. Home care reviewed with patient. Information dispensed. Patient can discontinue home care to the left hallux as it is healed. Return in about 2 weeks (around 09/17/2022) for Post-Op. Lulú Craig DPM documented in this encounter [facility] 08-06-2022 Instructions Lulú Craig DPM - 08/06/2022 11:32 AM EST Home Care Instruction After Nail Surgery Leave the bandages on until tomorrow morning. At that time, you can remove the bandages to shower/bathe. If the bandages are too difficult to remove, you may soak the toe or bath with the bandages on to loosen them and remove finished. Soak the surgical foot in warm water with 3 Tablespoons Epsom Salt, for 20 minutes. Dry the foot well and apply antibiotic ointment and a band aid to the toe prior to applying socks/shoe. It is recommended that you soak the surgical foot twice daily, once in the morning and again in the evening. Soaking will prevent infection from occurring. Remember to apply antibiotic ointment to the toe after drying well and cover with a bandage. If you are experiencing pain after surgery, you are permitted to take Tylenol/Aleve/Motrin, or any other pain medicine that you normally take for aches and pains. If you have any question about what you should take, do not hesitate to call/ask Dr. Craig or Dr. Reyna. Try to limit your activities for the first few days after surgery. An increase in standing/walking can cause throbbing, swelling and pain to the toe. Should this occur, elevate you leg on 3 pillows and apply and ice pack directly to the skin. If you experience fevers, chills, nausea, vomiting, loss of appetite or any other symptoms that are unusual for you, call Dr. Craig or Dr. Reyna to discuss. Please schedule your first post-operative visit with Dr. Craig. This should occur within 7-10 days of your procedure. Remember, it is always better to call Dr. Craig or Dr. Nava if you have any questions regarding your post-operative healing. We want you to have an easy, uncomplicated recovery period. No question about your care is ever silly. documented in this encounter [facility] 08-06-2022 History of Presen t illness Narrative Subjective: Danette Berry is a 51 year old female who presents to follow up on ingrown toenail, left hallux, B/L borders. She presents for matrixectomy. Post op soaking instructions were reviewed and given to patient. Patient denies history of cough, fever, respiratory symptoms, recent travel or exposure to individuals with any history or diagnosis of COVID19. PCP: Saad LDOS: 06/26/2022 Past Medical History: History reviewed. No pertinent past medical history. Past Surgical History: History reviewed. No pertinent surgical history. Allergies: Patient has no allergy information on record. No current outpatient medications on file. No current facility-administered medications for this visit. Physical Exam: Ht 165.1 cm (5' 5 ) Wt 99.8 kg (220 lb) BMI 36.61 kg/m BMI 36.61 kg/(m^2) Vascular: Dorsalis Pedis: +2/4 Bilateral; Posterior Tibial: +2/4 Bilateral; capillary refill < 5 seconds to all digits; Skin temperature is warm to warm, knees to toes Bilateral. Hair growth is present to the lower extremities. No varicosities noted, Edema appreciated to the posterior right heel, mild. Neurologic: Patellar and Achilles DTR's +2/4 Bilateral, Proprioception intact Bilateral, Epicritic sensation is grossly intact when testing with a [place] [employer] 5.07 monofilament and tuning fork to all 10 sites bilateral. Integumentary: Web Spaces clean, dry, intact. No open lesions or ulcers noted. No sign of infection including pus, drainage, malodor, erythema, calor, lymphangitis, or lymphadentitis noted. Skin turgor within normal limits, Tibial and Fibular margins of Hallux nail are incurvated and painful with palpation to the thickest portion of the nail centrally. Deep grooves are still noted within the distal nail bed and folds. Musculoskeletal: Muscle strength against resistance to all extrinsic tendons supplying the foot and ankle +5/5 bilateral. Full active range of motion of the foot and ankle with inversion, forefoot abduction, adduction and toe flexion and extension, Pes Cavus foot type is noted with a non-reducible high arch deformity and abnormal loading of the forefoot and increase in medial longitudinal arch, Pain is reproduced with palpation to the insertional fibers of the Kalaheo's tendon of the right heel and along the posterior attachment of the Achilles. Mild discomfort is noted with palpation to the prominent superior lateral tubercle of the right calcaneus. This prominence is bilateral however only painful on the right lower extremity. Slightly high arch noted in stance bilateral. Biomechanics: An antalgic gait was seen with the patient walking the hallway Data: No results found for: HBA1C Xrays: 01/29/2022 Right Foot, Weight bearing, 3 Views AP/Oblique/LAT FINDINGS: No evidence of fracture or dislocation. No osteochondral injury noted. No degenerative changes present. Inferior and plantar calcaneal spurring noted. Epi's deformity noted . Increase in calcaneal inclination angle noted suggested of mild high arch deformity. Procedures: Performed in the office today: Matrixectomy, tibial and fibular margins left hallux. The surgical digit was scrubbed, prepped with Betadine, and the extremity draped in the usual sterile fashion. The affected margin(s) was anesthetized with 2% Xylocaine plain using a freer elevator, the surrounding soft tissue was reflected from the nail plate. The nail plate was cut and excised in toto. The nail fold was curettage and using the surgitron and phenol and alcohol technique, a Matrixectomy was performed. Dry sterile bandage was applied Assessment: Onychocryptosis (primary encounter diagnosis) Great toe pain, left Plan: Comprehensive lower extremity examination was performed. All findings and treatment recommendations were reviewed with the patient and family member/friend (if present). A detailed history and examination was obtained. I reviewed Lab results, Diagnostic & imaging results, Other practitioners charts, and took into consideration Labs or diagnostics that need to be performed. Reviewed the extensive management options for diagnosis or treatment of the above conditions. Total visit time was over 35 minutes and >50% was spent in personal face to face counseling and/or coordination of care for above conditions and treatment options. Home care reviewed with patient. Information dispensed. Patient will require Matrixectomy to right hallux borders at her earliest convenience. Return in about 2 weeks (around 08/20/2022) for Post-Op. Lulú Craig DPM documented in this encounter [facility] 05-14-2022 History of Presen t illness Narrative Subjective: Danette Berry is a 51 year old female who presents to follow up on ingrown toenail, left hallux, B/L borders. She had a temporary nail avulsion on 01/29/2022. She states she has not had any issues since her procedure. 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 Patient denies history of cough, fever, respiratory symptoms, recent travel or exposure to individuals with any history or diagnosis of COVID19. PCP: Saad LEROYOS: 06/05/21 Past Medical History: History reviewed. No pertinent past medical history. Past Surgical History: History reviewed. No pertinent surgical history. Allergies: Patient has no allergy information on record. No current outpatient medications on file. No current facility-administered medications for this visit. Physical Exam: Ht 165.1 cm (5' 5 ) Wt 99.8 kg (220 lb) BMI 36.61 kg/m BMI 36.61 kg/(m^2) Vascular: Dorsalis Pedis: +2/4 Bilateral; Posterior Tibial: +2/4 Bilateral; capillary refill < 5 seconds to all digits; Skin temperature is warm to warm, knees to toes Bilateral. Hair growth is present to the lower extremities. No varicosities noted, Edema appreciated to the posterior right heel, mild. Neurologic: Patellar and Achilles DTR's +2/4 Bilateral, Proprioception intact Bilateral, Epicritic sensation is grossly intact when testing with a [place] [employer] 5.07 monofilament and tuning fork to all 10 sites bilateral. Integumentary: Web Spaces clean, dry, intact. No open lesions or ulcers noted. No sign of infection including pus, drainage, malodor, erythema, calor, lymphangitis, or lymphadentitis noted. Skin turgor within normal limits, Tibial and Fibular margins of Hallux nail are well healed and early regrowth noted at the proximal 30% of the plate. Mild discomfort with palpation to the thickest portion of the nail centrally. Deep grooves are still noted within the distal nail bed and folds. Musculoskeletal: Muscle strength against resistance to all extrinsic tendons supplying the foot and ankle +5/5 bilateral. Full active range of motion of the foot and ankle with inversion, forefoot abduction, adduction and toe flexion and extension, Pes Cavus foot type is noted with a non-reducible high arch deformity and abnormal loading of the forefoot and increase in medial longitudinal arch, Pain is reproduced with palpation to the insertional fibers of the Faye's tendon of the right heel and along the posterior attachment of the Achilles. Mild discomfort is noted with palpation to the prominent superior lateral tubercle of the right calcaneus. This prominence is bilateral however only painful on the right lower extremity. Slightly high arch noted in stance bilateral. Biomechanics: An antalgic gait was seen with the patient walking the hallway Data: No results found for: HBA1C Xrays: 01/29/2022 Right Foot, Weight bearing, 3 Views AP/Oblique/LAT FINDINGS: No evidence of fracture or dislocation. No osteochondral injury noted. No degenerative changes present. Inferior and plantar calcaneal spurring noted. Epi's deformity noted . Increase in calcaneal inclination angle noted suggested of mild high arch deformity. Procedures: Performed in the office today: None Assessment: Onychocryptosis (primary encounter diagnosis) Great toe pain, left Tendonitis, achilles, right Epi's deformity of both heels Heel spur, right Plan: Comprehensive lower extremity examination was performed. All findings and treatment recommendations were reviewed with the patient and family member/friend (if present). A detailed history and examination was obtained. I reviewed Lab results, Diagnostic & imaging results, Other practitioners charts, and took into consideration Labs or diagnostics that need to be performed. Reviewed the extensive management options for diagnosis or treatment of the above conditions. Total visit time was over 35 minutes and >50% was spent in personal face to face counseling and/or coordination of care for above conditions and treatment options. Patient with deformity to nail plate. I would like for her to reevaluate her discomfort level in 2 months to determine is she requires additional care. I anticipate she will require Matrixectomy to bilateral borders of the left hallux nail plate. Return if symptoms worsen or fail to improve. Lulú Craig DPM documented in this encounter [facility] 02-19-2022 History of Presen t illness Narrative Subjective: Danette Beryr is a 51 year old female who presents to follow up on temporary nail avulsion, left hallux bilateral borders. Patient had procedure on 01/29/2022. Patient reports pain 0/10 on PAS. Patient has performed daily epsom salt soaks and bandage changes. Patient reports no signs of infection. Patient denies history of cough, fever, respiratory symptoms, recent travel or exposure to individuals with any history or diagnosis of COVID19. PCP: Saad LDOS: 06/05/21 Past Medical History: History reviewed. No pertinent past medical history. Past Surgical History: History reviewed. No pertinent surgical history. Allergies: Patient has no allergy information on record. No current outpatient medications on file. No current facility-administered medications for this visit. Physical Exam: Ht 165.1 cm (5' 5 ) Wt 99.8 kg (220 lb) BMI 36.61 kg/m BMI 36.61 kg/(m^2) Vascular: Dorsalis Pedis: +2/4 Bilateral; Posterior Tibial: +2/4 Bilateral; capillary refill < 5 seconds to all digits; Skin temperature is warm to warm, knees to toes Bilateral. Hair growth is present to the lower extremities. No varicosities noted, Edema appreciated to the posterior right heel, stable. Edema, erythema has resolved to the left hallux Neurologic: Patellar and Achilles DTR's +2/4 Bilateral, Proprioception intact Bilateral, Epicritic sensation is grossly intact when testing with a [place] [employer] 5.07 monofilament and tuning fork to all 10 sites bilateral. Integumentary: Web Spaces clean, dry, intact. No open lesions or ulcers noted. No sign of infection including pus, drainage, malodor, erythema, calor, lymphangitis, or lymphadentitis noted. Skin turgor within normal limits, Tibial and Fibular margins of Hallux nail are well healed. No remaining infection or pain. Musculoskeletal: Muscle strength against resistance to all extrinsic tendons supplying the foot and ankle +5/5 bilateral. Full active range of motion of the foot and ankle with inversion, forefoot abduction, adduction and toe flexion and extension, Pes Cavus foot type is noted with a non-reducible high arch deformity and abnormal loading of the forefoot and increase in medial longitudinal arch, Pain is reproduced with palpation to the insertional fibers of the Kalaheo's tendon of the right heel and along the posterior attachment of the Achilles. Pain is also noted with palpation to the prominent superior lateral tubercle of the right calcaneus. This prominence is bilateral however only painful on the right lower extremity. Slightly high arch noted in stance bilateral. Biomechanics: An antalgic gait was seen with the patient walking the hallway Data: No results found for: HBA1C Xrays: 01/29/2022 Right Foot, Weight bearing, 3 Views AP/Oblique/LAT FINDINGS: No evidence of fracture or dislocation. No osteochondral injury noted. No degenerative changes present. Inferior and plantar calcaneal spurring noted. Epi's deformity noted . Increase in calcaneal inclination angle noted suggested of mild high arch deformity. Procedures: Performed in the office today: None Assessment: Paronychia of great toe of left foot (primary encounter diagnosis) Great toe pain, left Plan: Comprehensive lower extremity examination was performed. All findings and treatment recommendations were reviewed with the patient and family member/friend (if present). Patient is healed from nail surgery. I would like to follow her closely to monitor regrowth of deformed margins in anticipation of planning a Matrixectomy Return in about 2 months (around 04/21/2022) for nail avulsion. Lulú Craig DPM documented in this encounter [facility] 01-29-2022 Instructions Lulú Craig DPM - 01/29/2022 12:59 PM EDT .[email or web address] documented in this encounter [facility] 01-29-2022 Note HNO ID: [id number] Author: Lulú Craig DPM Service: ? Author Type: Physician Type: Progress Notes Filed: 01/29/2022 1:12 PM Note Text: Subjective: Danette Berry is a 51 year old female who presents with concern of bilateral border left hallux ingrown toenail. Patient has seen redness and swelling and has acute pain. Symptoms have been present for 6 month . Patient reports pain 10 on PAS and is aggravated by standing. Patient denies having this issue before in the past. 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 Patient reports having a bump on the back of right heel. Patient state feels tight at the back of the heel. Patient state she has been performing stretching. Patient states this problem began a month ago. Patient reports performing soaking for the pain. Patient denies taking pain medication. Patient has been using essential oils. Patient denies history of cough, fever, respiratory symptoms, recent travel or exposure to individuals with any history or diagnosis of COVID19. PCP: Saad LDOS: 06/05/21 Past Medical History: History reviewed. No pertinent past medical history. Past Surgical History: History reviewed. No pertinent surgical history. Allergies: Patient has no allergy information on record. No current outpatient medications on file. No current facility-administered medications for this visit. Physical Exam: Ht 165.1 cm (5' 5 ) Wt 99.8 kg (220 lb) BMI 36.61 kg/m? BMI 36.61 kg/(m2) Vascular: Dorsalis Pedis: +2/4 Bilateral; Posterior Tibial: +2/4 Bilateral; capillary refill < 5 seconds to all digits; Skin temperature is warm to warm, knees to toes Bilateral. Hair growth is present to the lower extremities. No varicosities noted, Edema appreciated to the posterior right heel and edema with erythema is noted to the distal nail folds of the left hallux. Neurologic: Patellar and Achilles DTR's +2/4 Bilateral, Proprioception intact Bilateral, Epicritic sensation is grossly intact when testing with a [place] [employer] 5.07 monofilament and tuning fork to all 10 sites bilateral. Integumentary: Web Spaces clean, dry, intact. No open lesions or ulcers noted. No sign of infection including pus, drainage, malodor, erythema, calor, lymphangitis, or lymphadentitis noted. Skin turgor within normal limits, Tibial and Fibular margins of Hallux nail are incurvated bilateral but painful on the left hallux. There are sign of skin break to the fibular margin with acute pain to palpation of both the tibial and fibular nail plates of left hallux. Musculoskeletal: Muscle strength against resistance to all extrinsic tendons supplying the foot and ankle +5/5 bilateral. Full active range of motion of the foot and ankle with inversion, forefoot abduction, adduction and toe flexion and extension, Pes Cavus foot type is noted with a non-reducible high arch deformity and abnormal loading of the forefoot and increase in medial longitudinal arch, Pain is reproduced with palpation to the insertional fibers of the Faye's tendon of the right heel and along the posterior attachment of the Achilles. Pain is also noted with palpation to the prominent superior lateral tubercle of the right calcaneus. This prominence is bilateral however only painful on the right lower extremity. Slightly high arch noted in stance bilateral. Biomechanics: An antalgic gait was seen with the patient walking the hallway Data: No results found for: HBA1C Xrays: 01/29/2022 Right Foot, Weight bearing, 3 Views AP/Oblique/LAT FINDINGS: No evidence of fracture or dislocation. No osteochondral injury noted. No degenerative changes present. Inferior and plantar calcaneal spurring noted. Epi's deformity noted . Increase in calcaneal inclination angle noted suggested of mild high arch deformity. Procedures: Performed in the office today: -Partial Temporary Nail Avulsion, tibial and fibular nail plate margins with nail fold wedge excision, left hallux The affected area was anesthetized with 2% Xylocaine plain. The toe was scrubbed and prepped in the usual sterile fashion. A [employer] Elevator was used to reflect surrounding soft tissue and the offending nail plate margin was cut and excised in toto. Curettage of the infected nail fold was performed. Nail fold and Granuloma was sharply excised in a wedge fashion to remove all infected tissue. Hemostasis was achieved. There were no signs of deep space infection. Dry, sterile bandage was applied. -Heel lift was dispensed and made of suitable and quality materials. Assessment: Tendonitis, achilles, right (primary encounter diagnosis) Epi's deformity of both heels Heel spur, right Paronychia of great toe of left foot Great toe pain, left Plan: Comprehensive lower extremity examination was performed. All findings and treatment recommendations w (more content not included)... [facility] 01-29-2022 History of Presen t illness Narrative Subjective: Danette Berry is a 51 year old female who presents with concern of bilateral border left hallux ingrown toenail. Patient has seen redness and swelling and has acute pain. Symptoms have been present for 6 month . Patient reports pain 9/10 on PAS and is aggravated by standing. Patient denies having this issue before in the past. 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 Patient reports having a bump on the back of right heel. Patient state feels tight at the back of the heel. Patient state she has been performing stretching. Patient states this problem began a month ago. Patient reports performing soaking for the pain. Patient denies taking pain medication. Patient has been using essential oils. Patient denies history of cough, fever, respiratory symptoms, recent travel or exposure to individuals with any history or diagnosis of COVID19. PCP: Saad LEROYOS: [birth year] Past Medical History: History reviewed. No pertinent past medical history. Past Surgical History: History reviewed. No pertinent surgical history. Allergies: Patient has no allergy information on record. No current outpatient medications on file. No current facility-administered medications for this visit. Physical Exam: Ht 165.1 cm (5' 5 ) Wt 99.8 kg (220 lb) BMI 36.61 kg/m BMI 36.61 kg/(m^2) Vascular: Dorsalis Pedis: +2/4 Bilateral; Posterior Tibial: +2/4 Bilateral; capillary refill < 5 seconds to all digits; Skin temperature is warm to warm, knees to toes Bilateral. Hair growth is present to the lower extremities. No varicosities noted, Edema appreciated to the posterior right heel and edema with erythema is noted to the distal nail folds of the left hallux. Neurologic: Patellar and Achilles DTR's +2/4 Bilateral, Proprioception intact Bilateral, Epicritic sensation is grossly intact when testing with a [place] [employer] 5.07 monofilament and tuning fork to all 10 sites bilateral. Integumentary: Web Spaces clean, dry, intact. No open lesions or ulcers noted. No sign of infection including pus, drainage, malodor, erythema, calor, lymphangitis, or lymphadentitis noted. Skin turgor within normal limits, Tibial and Fibular margins of Hallux nail are incurvated bilateral but painful on the left hallux. There are sign of skin break to the fibular margin with acute pain to palpation of both the tibial and fibular nail plates of left hallux. Musculoskeletal: Muscle strength against resistance to all extrinsic tendons supplying the foot and ankle +5/5 bilateral. Full active range of motion of the foot and ankle with inversion, forefoot abduction, adduction and toe flexion and extension, Pes Cavus foot type is noted with a non-reducible high arch deformity and abnormal loading of the forefoot and increase in medial longitudinal arch, Pain is reproduced with palpation to the insertional fibers of the Faye's tendon of the right heel and along the posterior attachment of the Achilles. Pain is also noted with palpation to the prominent superior lateral tubercle of the right calcaneus. This prominence is bilateral however only painful on the right lower extremity. Slightly high arch noted in stance bilateral. Biomechanics: An antalgic gait was seen with the patient walking the hallway Data: No results found for: HBA1C Xrays: 01/29/2022 Right Foot, Weight bearing, 3 Views AP/Oblique/LAT FINDINGS: No evidence of fracture or dislocation. No osteochondral injury noted. No degenerative changes present. Inferior and plantar calcaneal spurring noted. Epi's deformity noted . Increase in calcaneal inclination angle noted suggested of mild high arch deformity. Procedures: Performed in the office today: -Partial Temporary Nail Avulsion, tibial and fibular nail plate margins with nail fold wedge excision, left hallux The affected area was anesthetized with 2% Xylocaine plain. The toe was scrubbed and prepped in the usual sterile fashion. A [employer] Elevator was used to reflect surrounding soft tissue and the offending nail plate margin was cut and excised in toto. Curettage of the infected nail fold was performed. Nail fold and Granuloma was sharply excised in a wedge fashion to remove all infected tissue. Hemostasis was achieved. There were no signs of deep space infection. Dry, sterile bandage was applied. -Heel lift was dispensed and made of suitable and quality materials. Assessment: Tendonitis, achilles, right (primary encounter diagnosis) Epi's deformity of both heels Heel spur, right Paronychia of great toe of left foot Great toe pain, left Plan: Comprehensive lower extremity examination was performed. All findings and treatment recommendations were reviewed with the patient and family member/friend (if present). A detailed history and examination was obtained. I reviewed Lab results, Diagnostic & imaging results, Other practitioners charts, and took into consideration Labs or diagnostics that need to be performed. Reviewed the extensive management options for diagnosis or treatment of the above conditions. Total visit time was over 45 minutes and >50% was spent in personal face to face counseling and/or coordination of care for above conditions and treatment options. Patient with acute Achilles tendonitis. Home stretching reviewed and patient to stay in supportive shoe gear with use of heel lift as directed. RICE Patient with paronychia and deformity of nail plate, left hallux. Procedure as above. [facility], Home Care Instructions After Nail Surgery literature at today's visit. Patient to return for follow up and reevaluation Return in about 2 weeks (around 02/12/2022) for Post-Op. Lulú Craig DPM documented in this encounter [facility] Evaluation note Diagnosis Tendonitis, Achilles, right- Primary Achilles bursitis or tendinitis Epi's deformity of both heels Heel spur, right Paronychia of great toe of left foot Onychia and paronychia of toe Great toe pain, left documented [facility] this [facility] noteNo assessment information availableWayne Healthcare Main [facility] Work Phone: Evaluation note* Diagnosis Paronychia of great toe of left foot- Primary Onychia and paronychia of toe Great toe pain, left [facility] Diagnosis Onychocryptosis- Primary Ingrowing nail Great toe pain, left Tendonitis, Achilles, right Achilles bursitis or tendinitis Epi's deformity of both heels Heel spur, right [facility] Onychocryptosis- Primary Ingrowing nail Great toe pain, left [facility] Diagnosis Onychocryptosis- Primary Ingrowing nail Great toe pain, right Great toe pain, left documented in this encounter [facility] Summary Purpose Family History Relationship Condition Age at Onset Recorded Date/T jennifer grandparent Diabetes mellitus Unknown Relationship Condition Age at Onset Recorded Date/T jennifer grandparent Diabetes mellitus Unknown brother Diabetes mellitus Unknown father Unknown Advance Directives Advance Directive Response Recorded Date/ Time Advance Directives No December 23 1:02pm Chief Complaint and Reason for Visit Chief Complaint wellness Chief Complaint LABS for Wellness Chief Complaint Z00.00 Chief Complaint Z00.00 Z00.00, Z23 Additional Source Comments Source Comments (unrecognize d section and content) In the event this informatio n is protected by the Federal Confidentiality of Alcohol and Drug Abuse Patient Records regulations: The Federal rules restrict any use of the information to criminally investigate or prosecute any alcohol or drug abuse patient.[facility] the event this information is protected by the Federal Confidentiality of Alcohol and Drug Abuse Patient Records regulations: The Federal rules restrict any use of the information to criminally investigate or prosecute any alcohol or drug abuse patient.[facility] the event this information is protected by the Federal Confidentiality of Alcohol and Drug Abuse Patient Records regulations: The Federal rules restrict any use of the information to criminally investigate or prosecute any alcohol or drug abuse patient.[facility] the event this information is protected by the Federal Confidentiality of Alcohol and Drug Abuse Patient Records regulations: The Federal rules restrict any use of the information to criminally investigate or prosecute any alcohol or drug abuse patient.[facility] the event this information is protected by the Federal Confidentiality of Alcohol and Drug Abuse Patient Records regulations: The Federal rules restrict any use of the information to criminally investigate or prosecute any alcohol or drug abuse patient.[facility] Reason for Visit (unrecogniz ed section and content) Reason Comments [facility] Teams (unrecognized sec tion and content) Team Status: Active Member Role Status Dates Agustin Nash MD Primary Care Provider Active Team Status: Inactive Member Role Status Dates Agustin Nash MD Primary Care Provider Active Caitlyn Fagan-Andreas Major APRN Attending Provider Active Sports Leadership Instructor Relationship Specialty Start Date End Date Agustin Nash MD PCP - General Family Practice 05/09/15 [employer] Leadership Instructor Relationship Specialty Start Date End Date Agustin Nash MD PCP - General Family Medicine 05/09/15 Sports Leadership Instructor Relationship Specialty Start Date End Date Agustin Nash MD PCP - General Family Medicine 05/09/15 Team Status: Inactive Member Role Status Dates Agustin Nash MD Primary Care Provider Active Start: February 17, 2024 End: February 17, 2024 Caitlyn Fagan APRN Attending Provider Active Start: February 17, 2024 End: February 17, 2024 Team Status: Inactive Member Role Status Dates Agustin Nash MD Primary Care Provider Active Start: February 24, 2024 End: February 24, 2024 Caitlyn Fagan APRN Attending Provider Active Start: February 24, 2024 End: February 24, 2024 INFORMATION SOURCE (unrecogn ized section and content) DATE CREATED AUTHOR 01/30/2022 [facility] DATE CREATED AUTHOR AUTHOR'S ORGANIZ ATION 09/07/2022 [facility] DATE CREATED AUTHOR AUTHOR'S ORGANIZ ATION 10/14/2022 [facility] Specialist DATE CREATED AUTHOR AUTHOR'S ORGANIZ ATION 12/01/2023 [facility] EPIC DATE CREATED AUTHOR AUTHOR'S ORGANIZ ATION 03/07/2024 [facility] Goals (unrecognized section and content) Goals may be documented in a n alternate sectionGoals may be documented in an alternate sectionGoals may be documented in an alternate sectionGoals may be documented in an alternate sectionGoals may be documented in an alternate section FOR RECORDS PERTAINING TO PATIENTS WHO ARE OR HAVE BEEN ENROLLED IN A CHEMICAL DEPENDENCY/SUBSTANCEABUSE PROGRAM, SOME INFORMATION MAY BE OMITTED. This clinical summary was aggregated from multiple sources. Caution should be exercised in using it in the provision of clinical care. This summary normalizes information from multiple sources, and as a consequence, information in this document may materially change the coding, format and clinical context of patient data. In addition, data may be omitted in some cases. CLINICAL DECISIONS SHOULD BE BASED ON THE PRIMARY CLINICAL RECORDS. [facility] [employer] [facility]. provides no warranty or guarantee of the accuracy or completeness of information in this document.
== END 2024-08-03 20:00 | disposition home or self-care (01) ==
LOC: SLEEP 20:00
PROVIDERS: PCP Family Medicine; Visit Provider Family Medicine
DX: G47.33 Obstructive sleep apnea (adult) (pediatric) (principal)
CPT/HCPCS: 95811